=== PATIENT | male | born 1970 | race Hispanic/Latino ===

== ENCOUNTER → 2018-04-13 | Outpatient (CLI) | payer MEDICAID | END | disposition home or self-care (01) | LOC: SHCH 10:35 | PROVIDERS: ATTEND Internal Medicine Cardiovascular Disease | DX: I11.9 Hypertensive heart disease without heart failure (principal); Z95.2 Presence of prosthetic heart valve | CPT/HCPCS: 93306 ==

== ENCOUNTER 2021-12-20 12:28 | Emergency (ER) | payer MEDICAID, OTHER ==
[~2021-12-20] VITALS: Ht 157.5 cm; Wt 99.8 kg
[2021-12-20 12:30] VITALS: BP 128/60
[2021-12-20] MEDS ORDERED: TETANUS/DIPHTHERIA TOXOID [ADULT] 0.5 ML VIAL IM ONE (13:00)
[2021-12-20] MEDS ORDERED: CEPH500B PO (13:05)
== END 2021-12-20 13:18 | disposition home or self-care (01) ==
LOC: EDH 12:28
DX: T63.091A Toxic effect of venom of other snake, accidental (unintentional), initial encounter (principal); Y92.89 Other specified places as the place of occurrence of the external cause
CPT/HCPCS: 90471; 90714